=== PATIENT | female | born 1945 | race Caucasian/White ===

== ENCOUNTER 2016-06-02 12:35 | Emergency (ER) | payer MEDICARE, MEDICAID ==
[~2016-06-02] VITALS: Ht 160 cm; Wt 137.4 kg
--- NOTE | 2016-06-02 13:09 | PHYS DOC ---
Past Medical History Past Medical History: COPD, Diabetes-Type II, Hypertension Additional Past Surgical Histo: heart surgery - repair of "hole in heart" Adult General Chief Complaint Chief Complaint: LOWER EXT PAIN HPI HPI Patient is a 71 year old female who presents with RLE pain. Patient reports she has had increasing pain in her RLE for the past two weeks. No fall or other inciting event. She describes a sharp pain from her knee down to her ankle when she places any weight on the leg. If she moves a certain way she also has pain that radiates up to her hip. She reports the pain is similar to what she has had with sciatica in the past, but this is more positional than it was at that time. No numbness or weakness. No loss of bowel/bladder continence. She has been taking her usual meds for pain: baclofen, tylenol, gabapentin, fentanyl patch. No other acute complaints. Review of Systems Review of Systems Constitutional: Denies fever or chills Eyes: Denies change in visual acuity or eye pain HENT: Denies nasal congestion or sore throat Respiratory: Denies cough or shortness of breath Cardiovascular: Denies chest pain GI: Denies abdominal pain, nausea, vomiting, bloody stools or diarrhea : Denies dysuria or hematuria Musculoskeletal: RLE pain Integument: Denies rash or skin lesions Neurologic: Denies headache, focal weakness or sensory changes Current Medications Current Medications Current Medications Medications (Trade) Dose Ordered Sig/Henry Start Time Stop Time Status Last Admin Dose Admin Oxycodone HCl (Roxicodone) 10 mg 1X ONCE 06/02/16 13:15 06/02/16 13:16 DC 06/02/16 13:19 10 MG Allergies Allergies Allergies Coded Allergies Type Severity Reaction Last Updated Verified No Known Drug Allergies 06/02/16 No Physical Exam Physical Exam Constitutional: Well developed, well nourished, no acute distress, non-toxic appearance HENT: Normocephalic, atraumatic, bilateral external ears normal Eyes: EOMI, conjunctiva normal, no discharge Neck: Normal range of motion, no stridor Cardiovascular: Heart rate normal, regular rhythm, no murmur Lungs & Thorax: Bilateral breath sounds clear to auscultation Abdomen: Bowel sounds normal, soft, non-distended, no TTP Skin: Warm, dry, no erythema, no rash Back: No lumbar tenderness, no stepoff or deformity Extremities: No obvious deformity, no edema. RLE visually unremarkable compared to LLE; 2+ DP pulse; no significant pain with passive ROM (moreso when she places weight on it); no bony TTP; sensation to light touch intact throughout; strength symmetrical with LLE Neurologic: Alert and oriented X 3, no gross deficits noted Psychologic: Affect normal, judgement normal, mood normal Current Patient Data Vital Signs Vital Signs Date Time Temp Pulse Resp B/P Pulse Ox O2 Delivery O2 Flow Rate FiO2 06/02/16 14:18 19 98 Room Air 06/02/16 13:19 2.0 06/02/16 13:02 98.7 55 145/71 98.7 EKG EKG [] Radiology/Procedures Radiology/Procedures RLE US: IMPRESSION: 1. No evidence of deep venous thrombosis. X-ray R knee: IMPRESSION: 1. Moderate hypertrophic degenerative change. 2. No acute bony abnormality is detected. X-ray lumbar spine: IMPRESSION: 1. Moderate degenerative change, most severe at the L5-S1 level. 2. No acute bony abnormality is detected. Course & Med Decision Making Course & Med Decision Making Pertinent Labs and Imaging studies reviewed. (See chart for details) Patient is 71 year old female who presents with RLE pain x2 weeks. DDx includes sciatica, osteoarthritis of knee, DVT. No red flag physical exam findings or symptoms. Will check RLE US, x-ray of R knee, x-ray of lumbar spine. Oral pain medication ordered for relief of symptoms. Imaging results as above. Discussed results with patient, whose pain is better but still present with movement/ weight placed on extremity. I discussed option of admission if she was unable to ambulate vs discharge home with outpatient follow up. Patient would like to go home, and says that her granddaughter (with whom she lives) will be able to help her get home and help her around the house. Will discharge with rx for pain meds, instructions for close outpatient follow up, and strict return precautions. Dragon Disclaimer Dragon Disclaimer This electronic medical record was generated, in whole or in part, using a voice recognition dictation system. Departure Departure Impression: Primary Impression: Pain of right lower extremity Disposition: HOME, SELF-CARE Condition: IMPROVED Referrals: VIKKI DEAN MD (PCP) LOREZNO RIOS MD Patient Instructions: Knee Pain, Sciatica Additional Instructions: Thank you for allowing us to provide care today in the Emergency Department. Take the provided medication as directed. Use caution after taking the pain medication as it can make you drowsy. Schedule a follow up appointment with your primary care doctor and with an orthopedist using the provided contact information. Return promptly to the Emergency Department if you develop any new or concerning symptoms. Scripts Oxycodone Hcl 5 Mg Tablet5 Mg PO Q6HRS PRN PAIN #20 TAB Ref 0 Prov:RAGHAV CASTILLO MD 06/02/16 RAGHAV CASTILLO MD Jun 02, 2016 13:09
[2016-06-02] MEDS ORDERED: OXYCODONE IR 5 MG TABLET. PO ONE (13:15)
--- NOTE | 2016-06-02 14:24 | RAD ---
Right knee, 3 views, 06/02/2016: History: Lower extremity pain There is mild narrowing of the medial compartment of the knee joint with moderate marginal spurring. Moderate hypertrophic degenerative change is also present the patellofemoral articulation. No acute fracture or dislocation is identified. There is a suggestion of a small joint effusion. IMPRESSION: 1. Moderate hypertrophic degenerative change. 2. No acute bony abnormality is detected.
--- NOTE | 2016-06-02 14:26 | RAD ---
Lumbar spine, 3 views, 06/02/2016: History: Low back pain The lumbar vertebral heights are well-maintained. There is moderate disc space narrowing at L5-S1 with a vacuum disc phenomena and marginal spurring. There are a few other scattered marginal spurs in the upper lumbar spine. There are moderate degenerative changes involving the facet joints bilaterally in the lower lumbar spine. No fracture or dislocation is evident. Aortoiliac calcific plaquing is present. IMPRESSION: 1. Moderate degenerative change, most severe at the L5-S1 level. 2. No acute bony abnormality is detected.
--- NOTE | 2016-06-02 14:34 | RAD ---
EXAM: Right lower extremity venous Doppler. HISTORY: Right lower extremity pain/swelling. COMPARISON: None. FINDINGS: Grayscale and Doppler analysis of the right lower extremity deep venous system was performed with graded compression and augmentation. The common femoral, greater saphenous, superficial femoral, popliteal and calf veins were assessed. There is no evidence of deep venous thrombosis. IMPRESSION: 1. No evidence of deep venous thrombosis.
[2016-06-02] MEDS ORDERED: OXYC5TAB PO (14:48)
[2016-06-02 15:00] VITALS: BP 143/66
== END 2016-06-02 15:18 | disposition home or self-care (01) ==
LOC: ER 12:35
DX: M79.604 Pain in right leg (principal); I10 Essential (primary) hypertension; E11.9 Type 2 diabetes mellitus without complications; J44.9 Chronic obstructive pulmonary disease, unspecified
CPT/HCPCS: 72100; 73562; 93971; 99284

== ENCOUNTER → 2018-07-06 | Outpatient (CLI) | payer OTHER ==
[~2018-07-06] MED LIST: OXYC5TAB4 PO
--- NOTE | 2018-07-06 14:05 | KCIC ---
EXT NON VASC RIGHT Clinical Indication: Right shoulder lump. Prior surgery 2002. Comparison: None. TECHNIQUE: Real-time ultrasound imaging of the soft tissues of the right shoulder is performed. Findings: In the right posterior lateral shoulder area of palpable concern, there is a superficial hypoechoic mass with internal fascial planes measuring approximately 5.8 x 2.7 x 6.1 cm. No internal complexity is appreciated. Color Doppler interrogation is negative. Mass may be a lipoma. IMPRESSION: Probable lipoma of the posterior lateral right shoulder. Electronically signed by: Sorin Mendez MD (07/06/2018 2:02 PM) [id number]
--- NOTE | 2018-07-06 14:49 | KCIC ---
EXAM: Dual energy x-ray absorptiometry (DEXA). HISTORY: Postmenopausal female presents for osteoporosis screening. COMPARISON: None. TECHNIQUE: Dual energy x-ray absorptiometry of the lumbar spine and left hip was performed. Calculation of bone mineral density based on standard deviations above or below the expected young adult normal value (T-score) was completed. FINDINGS: The average bone mineral density in the 1st through 4th lumbar vertebrae is 1.15 g/cmxcm, corresponding with a T-score of 1.0. The average total bone mineral density in the left hip is 0.885 g/cmxcm, corresponding with a T-score of -0.5. IMPRESSION: Normal bone mineral density. Note: Definitions established by the World Health Organization: 1. Normal: T-score is -1.0 or above. 2. Osteopenia: T-score is between -1.0 and -2.5 . 3. Osteoporosis: T-score is -2.5 or below. Electronically signed by: Daxa Vaughan MD (07/06/2018 2:46 PM) [place] [id number]
--- NOTE | 2018-07-06 14:54 | KCIC ---
Examination: Ultrasound soft tissue neck HISTORY: History of lump in the anterior neck COMPARISON: None available FINDINGS: Small lymph nodes identified in the bilateral neck, measuring 1.6 x 0.4 1.8 cm in the right neck and 0.8 x 0.2 x 0.8 cm in the left neck. IMPRESSION: Small bilateral cervical lymph nodes with the largest measuring 1.8 cm on the right. Electronically signed by: Chi Thacker MD (07/06/2018 2:52 PM) [id number]
--- NOTE | 2018-07-06 16:50 | KCIC ---
Bilateral digital screening mammograms: Reason for examination: Routine screening. New baseline. Interpretation was made with the benefit of CAD. The skin and nipples show no abnormalities. No abnormal axillary lymph nodes are seen. The breast parenchyma shows scattered fibroglandular density. (Breast density: Category B.) There are no dominant masses, suspicious calcifications or architectural distortions. Some benign calcifications are present. Impression: No evidence of malignancy. Recommend routine screening. BI-RADS category 2: Benign "Our facility is accredited by the [employer] Mammography Program." This patient's information has been entered into a reminder system for the patient to be notified with the results of her examination and a target date for the next mammogram. Electronically signed by: Ingrid Renae MD (07/06/2018 4:47 PM) [id number]
== END | disposition home or self-care (01) ==
LOC: KCIC US 12:49
DX: Z12.31 Encounter for screening mammogram for malignant neoplasm of breast (principal); Z13.820 Encounter for screening for osteoporosis; R22.1 Localized swelling, mass and lump, neck; R22.31 Localized swelling, mass and lump, right upper limb; Z78.0 Asymptomatic menopausal state
CPT/HCPCS: 76536; 76881; 77067; 77080

== ENCOUNTER → 2018-12-27 | Outpatient (CLI) | payer OTHER, MEDICAID ==
[2018-11-09 15:32] VITALS: BP 140/61
[~2018-12-27] MED LIST changes: +ACET500T68 PO; +ALBU2.5V8 INH; +AMLO5TAB10 PO; +ASPI-630 PO; +BUME2TAB3 PO; +DEXT15DR5 EACHEYE; +DICL75TA PO; +FLUT100D IH; +FLUT16SP NS; +FLUT50BL IH; +GABA600T7 PO; +METO50TA6 PO; +MONT10TA49 PO; +MULT1TAB52 PO; +OXYMETAZOLINE 0.05% NASAL SPRAY 30ML BOTTLE. NS ONE; +SODI30SP NS; +TIOT18CA IH; +VENL75TA PO; +ZOLPIDEM 5 MG TABLET. PO ONE
--- NOTE | 2019-01-01 10:11 | SLEEP ---
DATE OF STUDY: 12/27/2018 SLEEP STUDY ATTENDING PHYSICIAN: Dr. Mana Bacon. REFERRING PHYSICIAN: Dr. Theodore. The patient is 73 years old who weighs 287 pounds with a BMI of 51. The patient's Mangham score was 11. The patient underwent sleep study performed at [facility]. During the night study, the patient spent 425 minutes in bed and slept for 236 minutes with a sleep efficiency of 56%. Sleep latency was 55 minutes with an absent REM sleep. Sleep architecture showed normal stage 1 sleep, increased stage 2 sleep, normal slow wave and absent REM sleep. During the night study, the patient had 11 obstructive apneas, 3 mixed apneas, no central apneas and 40 hypopneas. The patient's apnea hypopnea index was 14 per hour with a supine index of 15 per hour and absent REM sleep. Nocturnal oximetry study revealed a mean oxygen saturation of 98% with the lowest of 80%. The 100% of time oxygen saturation remained between 80% and 89%. EKG monitoring revealed normal sinus rhythm, mean heart rate of 62 beats per minute, no sustained arrhythmias observed. PLMS were seen at index of 78 per hour and 8 per hour caused EEG arousals. Due to low AHI, the patient did not meet the split night criteria for CPAP initiation. IMPRESSION: 1. Mild sleep apnea-hypopnea syndrome at an AHI of 14 per hour. Absence of REM sleep can underestimate the severity of sleep apnea. 2. Sustained pattern of nocturnal hypoxia suggesting hypoventilation. Hypoxia may also be contributed by sleep apnea as well. 3. Severe PLMS. RECOMMENDATIONS: 1. The patient is clinically symptomatic with an Mangham score of 11. I would recommend treating the patient's sleep apnea with CPAP or oral appliance. 2. Once the patient is optimally treated, then follow up in 4-6 weeks to assess compliance with treatment and to document clinical improvement. 3. Weight loss is strongly advised. 4. Avoid [employer] depressants. 5. Cautioned regarding driving until symptoms of sleep apnea resolve with the use of CPAP. 6. The patient should also be further evaluated for symptoms of restless legs during the day and if present, it can be treated with dopaminergic agonist agents. LINWOOD TANG MD DR: ANDRE/sandra JOB#: [id number] / [id number] MANA Browning SABATO MD
== END | disposition home or self-care (01) ==
LOC: SLPLAB 18:56
PROVIDERS: ATTEND Internal Medicine Pulmonary Disease
DX: G47.33 Obstructive sleep apnea (adult) (pediatric) (principal); G47.61 Periodic limb movement disorder; I10 Essential (primary) hypertension; E11.9 Type 2 diabetes mellitus without complications; J44.9 Chronic obstructive pulmonary disease, unspecified
CPT/HCPCS: 95810